=== PATIENT | female | born 1995 | race Caucasian/White ===

== ENCOUNTER 2017-04-14 21:44 | Emergency (ER) | payer BC ==
[~2017-04-14] VITALS: Ht 160 cm; Wt 83.5 kg
[2017-04-14 21:50] VITALS: TEMP 37; Ht 160 cm; Wt 83.5 kg
[2017-04-14 23:36] LABS: BASO % 0.2 %; BASO ABS # 0.02 K/uL (0-0.2); EOS % 0.5 %; EOS ABS # 0.06 K/uL (0-0.5); HEMATOCRIT 39.5 % (37-47); IG# 0.02 K/uL (0.00-0.02); LYMPH % 25.4 %; LYMPH ABS # 2.92 K/uL (1.2-3.4); MEAN CELL VOLUME 85.7 fL (80-100); MEAN CORPUSCULAR HEMOGLOBIN 30.4 pg (25-34); MEAN CORPUSCULAR HGB CONC 35.4 g/dl (32-36); MEAN PLATELET VOLUME 9.6 fL (7.4-10.4); MONO % 6.8 %; MONO ABS # 0.78 K/uL (0.11-0.59); NEUT % 66.9 %; NEUT ABS # 7.68 K/uL (1.4-6.5); PLATELET COUNT 308 K/uL (130-400); RED CELL DISTRIBUTION WIDTH CV 12.6 % (11.5-14.5); RED CELL DISTRIBUTION WIDTH SD 39.5 fL (36.4-46.3); WHITE BLOOD COUNT 11.48 K/uL (4.8-10.8)
[2017-04-14] MEDS ORDERED: ONDANSETRON INJ 2 MG/ML 2 ML VIAL IV STA (23:37)
[2017-04-14] MEDS ORDERED: SODIUM CHLORIDE 0.9% 1000ML 1,000 ML IV STA (23:37)
[2017-04-14] MEDS ORDERED: KETOROLAC TROMETHAMINE 30 MG/ML VIAL IV STA (23:37)
--- NOTE | 2017-04-14 23:41 | EMERGENCY ROOM VISIT NOTE ---
History Report prepared by Criss: Bobby Beard Under the Supervision of: Dr. Melo Christianson D.O. First contact with patient: 23:27 Chief Complaint: HEADACHE Stated Complaint: HEADACHE, EAR/NOSE/THROAT PAIN-[facility] REF History of Present Illness The patient is a 21 year old female who presents to the Emergency Room with complaints of a worsening headache that started a month and a half ago. She says that she has had constant head pain for a year or so, but it really worsened since [place]. The patient states that the pain was more in her frontal area, but it is more in the back of her head now. She notes that she has seen multiple doctors, including the doctor at [facility], who told the patient that she may have sinusitis, and was put on Amoxicillin, which did not work. She was then put on Claritin for potential allergies, with no relief of her pain. The patient notes that she was seen at [facility] earlier today, and was referred here because the patient is having the "worst pain ever at a 10 out of 10". The patient says that she had a Balloon Sinuplasty last year. She notes that her pain is constant, and she is having pain in both her ears and deep down into her throat. The patient denies any chest pain or runny nose. She says that she has not been taking anything except for occasional Advil for her pain recently. Her last period was the beginning of this month. Source of History: patient Onset: A month and a half ago Position: head Symptom Intensity: worst pain of life Quality: other (has had pain for year and a half, but worsening recently) Timing: worsening Associated Symptoms: No chest pain Note: Associated symptoms: Ear pain, throat pain. Denies runny nose. Review of Systems See HPI for pertinent positives & negatives. A total of 10 systems reviewed and were otherwise negative. Past Medical & Surgical Medical Problems: (1) Head pain (2) No chronic problems Family History No pertinent family history Social History Smoking Status: Never Smoker Smokeless Tobacco Use: No Alcohol Use: occasionally Housing Status: lives with roommate Occupation Status: employed, student Current/Historical Medications Unable to Obtain Active Prescriptions or Reported Meds Allergies Coded Allergies: Penicillins (Verified Allergy, Unknown, + test, 04/14/17) Uncoded Allergies: MOLD,CAT,DOG,COCKROACH,DUST (Allergy, Unknown, + test, 04/14/17) Physical Exam Vital Signs Date Time Temp Pulse Resp B/P (MAP) Pulse Ox O2 Delivery O2 Flow Rate FiO2 04/15/17 01:17 82 18 122/84 98 04/14/17 23:27 84 18 139/81 98 Room Air 04/14/17 21:50 37.0 98 18 141/88 98 Room Air Physical Exam GENERAL: Patient is awake, alert, and in no acute distress. Patient is resting comfortably and showing no signs of anxiety EYES: The conjunctivae are clear. The pupils are round and reactive. EARS, NOSE, MOUTH AND THROAT: The nose is without any evidence of any deformity. Mucous membranes are moist tongue is midline NECK: The neck is nontender and supple. RESPIRATORY: Normal respiratory effort is noted there is no evidence of wheezing rhonchi or rales CARDIOVASCULAR: Regular rate and rhythm noted there no murmurs rubs or gallops normal S1 normal S2 GASTROINTESTINAL: The abdomen is soft. Bowel sounds are present in all quadrants. Abdomen is nontender MUSCULOSKELETAL/EXTREMITIES: There is no evidence of gross deformity full range of motion is noted in the hips and shoulders SKIN: There is no obvious evidence of any rash. There are no petechiae, pallor or cyanosis noted. NEUROLOGIC: Patient is awake alert and oriented x3 strength is symmetric patellar reflexes are 2+ bilaterally Medical Decision & Procedures ER Provider Diagnostic Interpretation: CT results as stated below per my review and radiologist interpretation. CT HEAD: No acute intracranial process. Radiologist: Linsey Brito MD Laboratory Results 04/14/17 23:20 Red Blood Count 4.61, Mean Corpuscular Volume 85.7, Mean Corpuscular Hemoglobin 30.4, Mean Corpuscular Hemoglobin Concent 35.4, Mean Platelet Volume 9.6, Neutrophils (%) (Auto) 66.9, Lymphocytes (%) (Auto) 25.4, Monocytes (%) (Auto) 6.8, Eosinophils (%) (Auto) 0.5, Basophils (%) (Auto) 0.2, Neutrophils # (Auto) 7.68, Lymphocytes # (Auto) 2.92, Monocytes # (Auto) 0.78, Eosinophils # (Auto) 0.06, Basophils # (Auto) 0.02 04/14/17 23:20 Test 04/14/17 23:17 04/14/17 23:20 Urine Color YELLOW Urine Appearance CLEAR (CLEAR) Urine pH 7.0 (4.5-7.5) Urine Specific [place] 1.006 (1.000-1.030) Urine Protein NEG (NEG) Urine Glucose (UA) NEG (NEG) Urine Ketones NEG (NEG) Urine Occult Blood NEG (NEG) Urine Nitrite NEG (NEG) Urine Bilirubin NEG (NEG) Urine Urobilinogen NEG (NEG) Urine Leukocyte Esterase TRACE (NEG) Urine WBC (Auto) 1-5 /hpf (0-5) Urine RBC (Auto) 0-4 /hpf (0-4) Urine Hyaline Casts (Auto) 0 /lpf (0-5) Urine Epithelial Cells (Auto) 10-20 /lpf (0-5) Urine Bacteria (Auto) NEG (NEG) Urine Test NEG (NEG) White Blood Count 11.48 K/uL (4.8-10.8) Red Blood Count 4.61 M/uL (4.2-5.4) Hemoglobin 14.0 g/dL (12.0-16.0) Hematocrit 39.5 % (37-47) Mean Corpuscular Volume 85.7 fL (80-100) Mean Corpuscular Hemoglobin 30.4 pg (25-34) Mean Corpuscular Hemoglobin Concent 35.4 g/dl (32-36) Platelet Count 308 K/uL (130-400) Mean Platelet Volume 9.6 fL (7.4-10.4) Neutrophils (%) (Auto) 66.9 % Lymphocytes (%) (Auto) 25.4 % Monocytes (%) (Auto) 6.8 % Eosinophils (%) (Auto) 0.5 % Basophils (%) (Auto) 0.2 % Neutrophils # (Auto) 7.68 K/uL (1.4-6.5) Lymphocytes # (Auto) 2.92 K/uL (1.2-3.4) Monocytes # (Auto) 0.78 K/uL (0.11-0.59) Eosinophils # (Auto) 0.06 K/uL (0-0.5) Basophils # (Auto) 0.02 K/uL (0-0.2) RDW Standard Deviation 39.5 fL (36.4-46.3) RDW Coefficient of Variation 12.6 % (11.5-14.5) Immature Granulocyte % (Auto) 0.2 % Immature Granulocyte # (Auto) 0.02 K/uL (0.00-0.02) Erythrocyte Sedimentation Rate 13 mm/hr (0-21) Anion Gap 6.0 mmol/L (3-11) Est Creatinine Clear Calc Drug Dose 118.3 ml/min Estimated GFR () 127.9 Estimated GFR (Non- 110.4 BUN/Creatinine Ratio 10.3 (10-20) Calcium Level 9.2 mg/dl (8.5-10.1) Total Bilirubin 0.4 mg/dl (0.2-1) Aspartate Amino Transf (AST/SGOT) 17 U/L (15-37) Alanine Aminotransferase (ALT/SGPT) 27 U/L (12-78) Alkaline Phosphatase 94 U/L (45-117) C-Reactive Protein < 0.29 mg/dl (0-0.29) Total Protein 8.0 gm/dl (6.4-8.2) Albumin 4.2 gm/dl (3.4-5.0) Globulin 3.8 gm/dl (2.5-4.0) Albumin/Globulin Ratio 1.1 (0.9-2) Laboratory results per my review. Medications Administered Medications (Trade) Dose Ordered Sig/Ming Route Start Time Stop Time Status Last Admin Dose Admin Ketorolac Tromethamine (Toradol Inj) 30 mg NOW STAT IV 04/14/17 23:37 04/14/17 23:39 DC 04/14/17 23:42 30 MG Sodium Chloride 1,000 ml @ 999 mls/hr Q1H1M STAT IV 04/14/17 23:37 04/15/17 00:37 DC 04/14/17 23:43 999 MLS/HR Ondansetron HCl (Zofran Inj) 4 mg NOW STAT IV 04/14/17 23:37 04/14/17 23:39 DC 04/14/17 23:42 4 MG ED Course 2329: The patient was evaluated in room B10. A complete history and physical examination were performed. 2337: Ordered Zofran Inj 4 mg IV, NSS 1000 ml @ 999 mls/hr IV, Toradol Inj 30 mg IV. 0048: Upon reevaluation, the patient is resting. I discussed the results and treatment plan with her. She verbalized agreement of the treatment plan. She was discharged home. Medical Decision Differential diagnosis: Etiologies such as migraine headache, meningitis, sinusitis, CO exposure, ICH, SAH, infection, tumor, headache, sinus thrombosis, arterial dissection, as well as others were entertained. Nursing notes reviewed. The patient is a 21-year-old female who presented to emergency department for evaluation of headache. The patient had a history of similar episodes in the past. She has had a referral to an ear nose and throat physician in the past. The patient did not have any focal neurologic deficit. She had no fever or meningismus. She was initially seen at [facility] but sent to the emergency department for further evaluation. I discussed patient's laboratory and radiographic studies with her. She was treated with IV pain medication. She was encouraged to rest and avoid any strenuous activity. I also encouraged her to follow-up with her primary care physician for possible neurology referral. Otherwise she was encouraged to return emergency department immediately if symptoms change or worsen or the need arises. Medication Reconcilliation Current Medication List: was personally reviewed by me Blood Pressure Screening Patient's blood pressure: Elevated blood pressure Blood pressure disposition: Elevated BP felt to be situational Impression Primary Impression: Headache Scribe Attestation The scribe's documentation has been prepared under my direction and personally reviewed by me in its entirety. I confirm that the note above accurately reflects all work, treatment, procedures, and medical decision making performed by me. Departure Information Dispostion Home / Self-Care Prescriptions Unable to Obtain Active Prescriptions or Reported Meds Referrals No Doctor, Assigned (PCP) [facility] Patient Instructions Headache Pain, My [facility] Additional Instructions Continue all medications as prescribed. Rest and avoid any strenuous activity. Follow-up with your family doctor soon as possible for further evaluation. Discussed possibility that he may require further studies or a referral to a neurologist to further evaluate the cause of your pain. Problem Qualifiers Primary Impression: Headache Headache type: unspecified Headache chronicity pattern: chronic headache Intractability: not intractable Qualified Codes: R51 - Headache
[2017-04-15 00:07] LABS: ALBUMIN 4.2 gm/dl (3.4-5.0); ALT/SGPT 27 U/L (12-78); AST/SGOT 17 U/L (15-37); BLOOD UREA NITROGEN 8 mg/dl (7-18); CALCIUM 9.2 mg/dl (8.5-10.1); CARBON DIOXIDE 28 mmol/L (21-32); CREATININE 0.77 mg/dl (0.60-1.20); GLUCOSE 101 mg/dl (70-99); POTASSIUM 3.5 mmol/L (3.5-5.1); SODIUM 138 mmol/L (136-145)
[2017-04-15 00:10] LABS: ALKALINE PHOSPHATASE 94 U/L (45-117)
[2017-04-15 01:17] VITALS: BP 122/84; PULSE 82; O2SAT 98
--- NOTE | 2017-04-15 06:45 | DIAGNOSTIC IMAGING REPORT ---
HEAD WITHOUT CONTRAST (CT) CLINICAL HISTORY: 21 years-old Female with HIDALGO. Acute headache TECHNIQUE: Multiple axial CT images of the head were obtained without contrast. A dose lowering technique was utilized adhering to the principles of ALARA. CT DOSE: 537.48 mGy.cm COMPARISON: None. FINDINGS: No acute intracranial hemorrhage, midline shift, intracranial mass, hydrocephalus, territorial ischemia or abnormal extra-axial collection. The calvarium is intact. The paranasal sinuses, mastoid air cells, and middle ear cavities are clear. IMPRESSION: No acute intracranial abnormality. The above report was generated using voice recognition software. It may contain grammatical, syntax or spelling errors. Electronically signed by: Douglas Raman M.D. 04/15/2017 6:44 AM Dictated Date/Time: 04/15/2017 6:39 AM
== END 2017-04-15 01:18 | disposition home or self-care (01) ==
LOC: C.EDB 21:46
DX: R51 Headache (principal); H92.09 Otalgia, unspecified ear; R07.0 Pain in throat; Z88.0 Allergy status to penicillin; Z91.048 Other nonmedicinal substance allergy status